=== PATIENT | female | born 1975 | race Caucasian/White ===

== ENCOUNTER 2019-11-26 12:02 | Emergency (ER) | payer OTHER ==
[2019-11-26 13:04] VITALS: BP 121/71
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
--- NOTE | 2019-11-26 14:00 | XRay Report ---
LEFT SHOULDER 3 VIEWS INDICATION: Left shoulder injury.. COMPARISON: No relevant prior imaging study available. FINDINGS: No acute skeletal abnormality. No significant degenerative changes. IMPRESSION: 1. No acute findings. Signer Name: Jaiden Mancera MD Signed: 11/26/2019 1:56 PM Workstation Name: [id number]
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
== END 2019-11-26 15:23 | disposition home or self-care (01) ==
LOC: EDBD 12:02 → ED 12:02
DX: S00.83XA Contusion of other part of head, initial encounter (principal); F17.200 Nicotine dependence, unspecified, uncomplicated; F25.9 Schizoaffective disorder, unspecified; F31.9 Bipolar disorder, unspecified; Z79.899 Other long term (current) drug therapy; Z88.0 Allergy status to penicillin; W18.30XA Fall on same level, unspecified, initial encounter; Y93.89 Activity, other specified; Y92.89 Other specified places as the place of occurrence of the external cause; Y99.8 Other external cause status
CPT/HCPCS: 70486